=== PATIENT | female | born 1940 | race Caucasian/White ===

== ENCOUNTER 2018-10-02 00:37 | Emergency (ER) | payer MEDICARE ==
[~2018-10-02] VITALS: Ht 160 cm; Wt 131.5 kg
[2018-10-02 00:41] VITALS: BP_SYST 182
[2018-10-02] MEDS ORDERED: LOSA25TA3 PO ×2 (00:54)
[2018-10-02] MEDS ORDERED: CARV12.548 PO (00:55)
[2018-10-02] MEDS ORDERED: CHOL200026 PO (00:56)
[2018-10-02] MEDS ORDERED: ERGO500020 PO (00:57)
[2018-10-02] MEDS ORDERED: LevALBUTEROL HCL 1.25 MG/0.5 ML *CONC.* VIAL.NEB (XOPENEX CONC.) INH ONE (01:00)
[2018-10-02] MEDS ORDERED: NITROGLYCERIN 1 INCH (GM) OINT. TP ONE (01:00)
[2018-10-02] MEDS ORDERED: FUROSEMIDE 40 MG/4 ML VIAL IVP ONE (01:00)
[2018-10-02] MEDS ORDERED: WARF5TAB2 PO (01:01)
[2018-10-02 01:25] LABS: HEMATOCRIT 34.2 % (36-48); HEMOGLOBIN 11.2 g/dL (12.0-16.0); MEAN CORPUSCULAR HEMOGLOBIN 28 pg (27-31); MEAN CORPUSCULAR HGB CONC 33 % (32-36); MEAN CORPUSCULAR VOLUME 85 fL (79.0-98.0); RED CELL DISTRIBUTION WIDTH 17.5 % (9.0-15.0); WHITE BLOOD COUNT (AUTO) 9.6 K/uL (4.8-10.8)
[2018-10-02 01:26] LABS: BASOPHILS % (AUTO) 0.9 % (0.0-2.0); EOSINOPHILS % (AUTO) 2.2 % (0.0-4.0); LYMPHOCYTES # (AUTO) 1.9 K/uL (1.0-5.5); LYMPHOCYTES % (AUTO) 19.4 % (20.5-51.5); MONOCYTES # (AUTO) 0.8 K/uL (0.0-1.0); MONOCYTES % (AUTO) 8.1 % (1.7-9.3); NEUTROPHILS # (AUTO) 6.6 K/uL (1.8-7.7); NEUTROPHILS % (AUTO) 69.4 % (40.0-70.0); PLATELET COUNT (AUTO) 172 K/uL (130-430)
[2018-10-02 01:27] LABS: BASOPHILS # (AUTO) 0.1 K/uL (0.0-0.2); EOSINOPHILS # (AUTO) 0.2 K/uL (0.0-0.4)
[2018-10-02 01:33] LABS: ANION GAP 8 (5-15); CALCIUM 8.4 mg/dL (8.4-11.0); CHLORIDE 108 mmol/L (98-107); CREATININE 0.87 mg/dL (0.55-1.30); GLUCOSE 67 mg/dL (70-99); SODIUM SERUM 143 mmol/L (136-145); UREA NITROGEN, BLOOD 19 mg/dL (8-21)
[2018-10-02 01:37] LABS: INR 1.2 (0.8-1.2); PROTHROMBIN TIME 12.6 SECS (9.5-12.5)
[2018-10-02 01:39] LABS: ALANINE AMINOTRANSFERASE 14 U/L (12-78); ALBUMIN 2.6 g/dL (3.4-4.8); ASPARTATE AMINOTRANSFERASE 21 U/L (10-37); TOTAL BILIRUBIN 0.4 mg/dL (0.0-1.0)
[2018-10-02] MEDS ORDERED: ONDANSETRON HCL 4 MG/2 ML VIAL IVP ONE (02:00)
[2018-10-02] MEDS ORDERED: DEXTROSE 50% JECT 50 ML DISP.SYRIN IVP ONE (02:30)
[2018-10-02] MEDS ORDERED: CLOP75TA32 PO (02:37)
[2018-10-02] MEDS ORDERED: SERT25TA PO (02:37)
[2018-10-02] MEDS ORDERED: LIP40 PO (02:37)
[2018-10-02] MEDS ORDERED: FURO-150 PO (02:37)
[2018-10-02 06:00] VITALS: BP_SYST 187
== END 2018-10-02 06:00 | disposition short-term general hospital (02) ==
LOC: SED 00:37
DX: I11.0 Hypertensive heart disease with heart failure (principal); I50.9 Heart failure, unspecified; E11.649 Type 2 diabetes mellitus with hypoglycemia without coma; R06.02 Shortness of breath; Z95.0 Presence of cardiac pacemaker; Z86.79 Personal history of other diseases of the circulatory system; Z88.8 Allergy status to other drugs, medicaments and biological substances; Z79.899 Other long term (current) drug therapy
CPT/HCPCS: 36415; 71045; 80053; 83880; 84484; 85025; 85610; 85730; 93005; 94640; 96374; 96375; 99285; J1940; J2405; J7612

== ENCOUNTER 2021-03-16 08:32 | Emergency (ER) | payer MEDICARE ==
[~2021-03-16] VITALS: Ht 167.6 cm; Wt 77.1 kg
[~2021-03-16 08:32] MED LIST: CARV12.548 PO; CHOL200026 PO; CLOP75TA32 PO; ERGO500020 PO; FURO-150 PO; LIP40 PO; LOSA25TA3 PO; SERT25TA PO; WARF5TAB2 PO
[2021-03-16 08:40] VITALS: BP_SYST 147
--- NOTE | 2021-03-16 08:40 | NUR ---
Placed in bed 3 by Royce, care assumed
--- NOTE | 2021-03-16 08:40 | NUR ---
Pt. estefany ACLS with hypoglycemia, paramedics reported family found her in bathroom this morning confused, family gave her orange juice and initial sugar on scene 58, 250ml. bag of D10 given, paramedics accucheck 220 on arrival, Pt. AAOx4
--- NOTE | 2021-03-16 08:42 | NUR ---
ER at bedside examining patient.
--- NOTE | 2021-03-16 08:45 | NUR ---
blood sugar 152
--- NOTE | 2021-03-16 09:02 | NUR ---
labs drawn, radiology at bedside for chest xray
[2021-03-16 09:10] LABS: BASOPHILS % (AUTO) 0.3 % (0.0-2.0); EOSINOPHILS # (AUTO) 0.2 K/uL (0.0-0.4); EOSINOPHILS % (AUTO) 2.6 % (0.0-4.0); HEMATOCRIT 35.5 % (36-48); LYMPHOCYTES # (AUTO) 2.4 K/uL (1.0-5.5); MEAN CORPUSCULAR HEMOGLOBIN 30 pg (27-31); MEAN CORPUSCULAR HGB CONC 34 % (32-36); MEAN CORPUSCULAR VOLUME 89 fL (79.0-98.0); MONOCYTES # (AUTO) 0.7 K/uL (0.0-1.0); MONOCYTES % (AUTO) 10.9 % (1.7-9.3); NEUTROPHILS # (AUTO) 3.4 K/uL (1.8-7.7); NEUTROPHILS % (AUTO) 51.2 % (40.0-70.0); PLATELET COUNT (AUTO) 165 K/uL (130-430); RED CELL DISTRIBUTION WIDTH 15.5 % (9.0-15.0); WHITE BLOOD COUNT (AUTO) 6.7 K/uL (4.8-10.8)
[2021-03-16 09:21] LABS: ANION GAP 4 (5-15); CALCIUM 8.1 mg/dL (8.4-11.0); CHLORIDE 108 mmol/L (98-107); CREATININE 1.22 mg/dL (0.55-1.30); GLUCOSE 144 mg/dL (70-99); POTASSIUM 3.7 mmol/L (3.5-5.1); SODIUM SERUM 140 mmol/L (136-145); UREA NITROGEN, BLOOD 23 mg/dL (8-21)
[2021-03-16 09:26] LABS: INR 2.5 (0.8-1.2)
[2021-03-16 09:38] LABS: ALANINE AMINOTRANSFERASE 21 U/L (12-78); ALBUMIN 2.3 g/dL (3.4-4.8); ASPARTATE AMINOTRANSFERASE 23 U/L (10-37); TOTAL BILIRUBIN 0.4 mg/dL (0.0-1.0)
--- NOTE | 2021-03-16 09:51 | NUR ---
accu check 138, pt. ate breakfast
--- NOTE | 2021-03-16 11:00 | NUR ---
accu check 193
[2021-03-16 11:35] VITALS: BP_SYST 67
--- NOTE | 2021-03-16 11:35 | NUR ---
Patient given written and verbal discharge instructions and verbalizes understanding. ER Dr. Brannon discussed with patient the results and treatment provided. Patient in stable condition. ID arm band removed. IV catheter removed intact and dressing applied, no active bleeding. Patient educated on pain management and to follow up with PMD. Pain Scale 0. Opportunity for questions provided and answered. Medication side effect fact sheet provided.
== END 2021-03-16 11:35 | disposition home or self-care (01) ==
LOC: SED 08:32
DX: E11.649 Type 2 diabetes mellitus with hypoglycemia without coma (principal); I10 Essential (primary) hypertension; Z88.8 Allergy status to other drugs, medicaments and biological substances; Z79.899 Other long term (current) drug therapy
CPT/HCPCS: 36415; 71045; 80053; 82550; 82962; 83880; 84484; 85025; 85610-TC; 85730-TC; 93005; 99285